=== PATIENT | female | born 1980 | race Hispanic/Latino ===

== ENCOUNTER 2019-02-17 17:48 | Emergency (ER) | payer OTHER ==
[2019-02-17 19:25] LABS: BASOPHILS % (AUTO) 2.3 % (0.0-5.0); EOSINOPHILS % (AUTO) 2.4 % (0.0-8.0); HEMATOCRIT 40.6 % (36-48); LYMPHOCYTES % (AUTO) 31.7 % (21.0-51.0); MEAN CORPUSCULAR HEMOGLOBIN 31.3 pg (27.0-33.0); MEAN CORPUSCULAR HGB CONC 35.7 g/dL (32.0-36.0); MEAN CORPUSCULAR VOLUME 87.8 fL (79-99); MONOCYTES % (AUTO) 8.7 % (3.0-13.0); NEUTROPHILS % (AUTO) 54.9 % (40.0-77.0); PLATELET COUNT (AUTO) 333 K/uL (130-400); RED BLOOD CELL COUNT(AUTO) 4.63 MIL/uL (4.00-5.50); RED CELL DISTRIBUTION WIDTH 13.2 % (11.0-15.5); WHITE BLOOD COUNT (AUTO) 11.3 K/uL (4.8-10.8)
[2019-02-17 19:29] LABS: CREATININE 0.7 mg/dL (0.5-1.5); POTASSIUM 3.7 mmol/L (3.5-5.1)
[2019-02-17 19:33] LABS: ALBUMIN 4.1 g/dL (3.5-5.0); BILIRUBIN,TOTAL 0.5 mg/dL (0.2-1.0); TOTAL PROTEIN, SERUM 9.2 g/dL (6.0-8.3)
[2019-02-17] MEDS ORDERED: CLINDAMYCIN HCL 150 MG CAP ONE (19:55)
== END 2019-02-17 21:06 | disposition home or self-care (01) ==
LOC: EDH 17:48
DX: K04.7 Periapical abscess without sinus (principal); L03.211 Cellulitis of face; Z98.890 Other specified postprocedural states
CPT/HCPCS: 36415; 70486; 80053; 81025; 85025; 85651

== ENCOUNTER 2024-08-01 15:46 | Emergency (ER) | payer OTHER ==
[~2024-08-01] VITALS: Ht 157.5 cm; Wt 90.7 kg
[2024-08-01 16:12] LABS: RAPID GROUP A STREP negative (NEGATIVE)
[2024-08-01 16:15] LABS: SARS-CoV-2, RNA, NAAT NEGATIVE SARS CoV-2 (NEGATIVE)
[2024-08-01 16:22] LABS: INFLUENZA TYPE A Negative For Type A (NEGATIVE); INFLUENZA TYPE B Negative For Type B (NEGATIVE)
[2024-08-01] MEDS ORDERED: BENZ-39 PO (16:34)
[2024-08-01] MEDS ORDERED: ALBUHFA IH (16:34)
[2024-08-01 16:53] VITALS: BP 134/81; PULSE 90; RESP 18; TEMP 98.4; O2SAT 100
== END 2024-08-01 16:58 | disposition home or self-care (01) ==
LOC: EDH 15:46
DX: J06.9 Acute upper respiratory infection, unspecified (principal); Z20.822 Contact with and (suspected) exposure to COVID-19; E11.9 Type 2 diabetes mellitus without complications; Z98.890 Other specified postprocedural states
CPT/HCPCS: 87635; 87804; 87880

== ENCOUNTER 2025-06-10 15:40 | Emergency (ER) | payer SELFPAY ==
[~2025-06-10] VITALS: Ht 154.9 cm; Wt 86.2 kg
[~2025-06-10 15:40] MED LIST: ALBUHFA IH; BENZ-39 PO
[2025-06-10 15:43] VITALS: TEMP 98.7
--- NOTE | 2025-06-10 16:00 | ERN ---
ED Note History of Present Illness Stated Complaint: SOB Chief Complaint: Cough Time Seen by MD: 15:43 Dictation: PATIENT IS A 44-YEAR-OLD FEMALE COMING IN TODAY WITH COMPLAINTS OF HAVING A COUGH NONPRODUCTIVE FOR THE LAST 3-4 DAYS. SHE STATES ON SUNDAY SHE TOOK A HOME COVID 19 TEST AND IT WAS POSITIVE. NO FEVER NO CHILLS NO LOSS OF TASTE OR SMELL NO NAUSEA VOMITING. SHE DOES NOT HAVE A PRIMARY CARE DOCTOR HOWEVER SHE WOULD LIKE TO BE RETESTED TO VERIFY THAT SHE HAS COVID. STATES HER TO DAUGHTERS WENT TO THEIR DOCTOR TODAY FOR A PHYSICAL AND THEY WERE NEGATIVE. Allergies: Coded Allergies: No Known Allergies (Unverified Allergy, Unknown, 08/01/24) Home Meds Active Scripts Benzonatate (Tessalon Perles) 100 Mg Cap, 200 MG PO TID for cough, #40 CAP 0 Refills TWO CAPSULES BY MOUTH EVERY 8 HOURS P.R.N. COUGH Prov:MADHU STARK MAIL SUPERINTENDENT 08/01/24 Albuterol Sulfate (Ventolin Hfa/Proventil Hfa/Proair Hfa) 90 Mcg Puff, 2 PUFF IH Q4H for WHEEZING, #1 INHALER 0 Refills Prov:MADHU STARK MAIL SUPERINTENDENT 08/01/24 Past Medical History Past Medical History: No Pertinent History Surgical History: History: Not Applicable RN Note Reviewed/Agreed w/PFSH: Yes Review of System Dictation CONSTITUTIONAL: NEGATIVE EXCEPT FOR HPI HEAD/FACE: NEGATIVE EXCEPT FOR HPI EENT: NEGATIVE EXCEPT FOR HPI RESPIRATORY: NEGATIVE EXCEPT FOR HPI COUGH NONPRODUCTIVE GASTROINTESTINAL/ABDOMINAL: NEGATIVE EXCEPT FOR HPI GENITOURINARY: NEGATIVE EXCEPT FOR HPI MUSCULOSKELETAL: NEGATIVE EXCEPT FOR HPI INTEGUMENTARY: NEGATIVE EXCEPT FOR HPI NEUROLOGICAL/PSYCH: NEGATIVE EXCEPT FOR HPI HEMATOLOGIC/LYMPHATIC: NEGATIVE EXCEPT FOR HPI ALL SYSTEMS NEGATIVE, EXCEPT NOTED ABOVE. 13 POINT REVIEW OF SYSTEMS ASSESSED AND ALL NEGATIVE EXCEPT FOR ABOVE. Initial Vital Sign VS Vital Signs Date Time Temp Pulse Resp B/P (MAP) Pulse Ox O2 Delivery O2 Flow Rate FiO2 06/10/25 15:43 98.8 90 18 114/84 99 Room Air 0 Physical Exam Dictation VITAL SIGNS REVIEWED GENERAL APPEARANCE: ALERT, ORIENTED X 3, NO ACUTE DISTRESS, WELL DEVELOPED, NO URISHED. NO ACUTE DISTRESS HEAD AND FACE: NON-TRAUMATIC. EYES: PERRL, PINK CONJUNCTIVAS, EYELID NO TRAUMA, ANTERIOR CHAMBER WITH ARCUS SENILIS. EARS: PINNAS INTACT AND NO SIGNS OF TRAUMA OR ERYTHEMA EAR CANALS CLEAR AND NO DISCHARGE TM NO ERYTHEMA NOSE: NO DISCHARGE, NO BLEEDING. OROPHARYNX: MOUTH NORMAL, TONGUE PINK, PHARYNX CLEAR,NO ERYTHEMA, TONSILS NO EXUDATES, NO ABSCESSES NOTED, MUCOUS MEMBRANE MOIST NECK: SUPPLE, NON-TENDER, NO THYROMEGALY, NO MASSES, NO JVD, NO BRUITS BREAST:DEFERRED CHEST:NO TENDERNESS, NO CREPITUS, NO PARADOXICAL MOVEMENT, NO RETRACTIONS LUNGS:CLEAR, WELL-VENTILATED, SYMMETRIC, NO RALES, NO WHEEZING, NO RHONCHI, NO STRIDOR, GOOD BREATH SOUNDS BILATERALLY HEART: REGULAR RATE, REGULAR RHYTHM, NO MURMUR, NO GALLOPS VASCULAR: NO PERIPHERAL EDEMA, ABDOMEN: SOFT, POSITIVE BOWEL SOUNDS, NONDISTENDED, NO GUARDING, NONTENDER, NO REBOUND, NO MASSES NO HEPATOMEGALY, NO SPLENOMEGALY, NO HAWK'S SIGN, NO HERNIAS. RECTAL: DEFERRED GENITAL: DEFERRED NEUROLOGICAL: NORMAL SPEECH, MOTOR FUNCTION INTACT, SENSORY FUNCTION INTACT MUSCULOSKELETAL: NECK NONTENDER, FULL RANGE OF MOTION, BACK NONTENDER, FULL RANGE OF MOTION, EXTREMITIES: NONTENDER, FULL RANGE OF MOTION SKIN: COLOR PINK, DRY, NO TURGOR, NO RASH, NO LACERATIONS, NO ABRASIONS, NO CONTUSIONS. LYMPHATIC: DEFERRED Results (Laboratory/Radiology) Laboratory/Radiology Laboratory Tests Test 06/10/25 16:04 SARS-CoV-2 Antigen (Rapid) POSITIVE FOR SARS AG Labs Reviewed?: Yes ED Course ED Course Orders Procedure Category Date Status Time Covid19 (Sars Antigen LAB 06/10/25 Complete Rapid) 15:57 Vital Signs Date Time Temp Pulse Resp B/P (MAP) Pulse Ox O2 Delivery O2 Flow Rate FiO2 06/10/25 15:43 98.8 90 18 114/84 99 Room Air 0 1700/NO ACUTE DISTRESS AT THIS TIME. SATURATING 99% ON ROOM AIR. PATIENT IS POSITIVE FOR COVID-19 INFECTION DISCHARGED HOME WITH ALBUTEROL AND MEDROL DOSEPAK Medical Decision Making MDM MEDICAL DECISION-MAKING BASED ON SWABS FOR COVID-19 ONLY SWAB IS POSITIVE DISCHARGED HOME WITH MEDROL DOSEPAK AND ALBUTEROL TOLD INCREASE YOUR FLUIDS AND SEE HER DOCTOR FOR FOLLOW UP DX & DISP Disposition: Discharge Departure Impression: Primary Impression: COVID-19 virus infection Condition: Stable Scripts Methylprednisolone (Medrol) 4 Mg Tab.ds.pk 1 TAB PO AD for 6 Days, #21 TAB 0 Refills 6 on day 1 then reduce by one tablet daily until gone Prov: MADHU STARK NP 06/10/25 Albuterol Sulfate (Ventolin Hfa/Proventil Hfa/Proair Hfa) 90 Mcg Puff 2 PUFF IH Q4H for WHEEZING, #1 INHALER 0 Refills Prov: MADHU STARK NP 06/10/25 Additional Instructions: FOLLOW-UP WITH PRIMARY CARE PROVIDER IN 1 TO 2 DAYS. TAKE MEDICATIONS DIRECTED HERE IN THE EMERGENCY ROOM. OKAY TO CONTINUE HOME MEDICATIONS UNLESS OTHERWISE DISCUSSED DURING YOUR VISIT IN THE EMERGENCY ROOM TODAY. RETURN TO YOUR NEAREST EMERGENCY ROOM IF SYMPTOMS WORSEN OR IF THERE IS NO IMPROVEMENT. CALL 911 IF YOU NEED IMMEDIATE ASSISTANCE. TAKE TYLENOL OR MOTRIN VAME-UVW-[id number] NEEDED AND IF NO CONTRAINDICATIONS ARE PRESENT. INCREASE ORAL HYDRATION. A WOUND CULTURE OR URINE CULTURE WAS ORDERED HERE IN THE EMERGENCY ROOM DEPARTMENT PLEASE FOLLOW-UP WITH PRIMARY CARE PROVIDER AND ADVISE THEM TO GET REPEAT PORTS FROM OUR FACILITY. IF YOU HAD ANY RAUL WRAP/SPLINTS THAT WERE APPLIED HERE, PLEASE DO NOT REMOVE THEM UNTIL YOU SEE YOUR PRIMARY CARE OR SPECIALTY. TAKE MEDROL DOSEPAK DIRECTED UNTIL GONE. TAKE ALBUTEROL INHALER EVERY 4-6 HOURS NEEDED FOR SHORTNESS A BREATH. INCREASE YOUR FLUID INTAKE. FOLLOW UP WITH ONE OF THE DOCTORS ON THE LIST PROVIDED YOU IN THE NEXT 1-2 DAYS NEEDED FOR MANAGEMENT Referrals: SELF,REFERRAL (PCP) Time of Disposition: 17:00 I have reviewed the case, and I agree with, Diagnosis and Plan MADHU STARK NP Jun 10, 2025 16:00
--- NOTE | 2025-06-10 16:44 | NUR ---
positive COVID results reported to Stu Singletary NP
[2025-06-10] MEDS ORDERED: METH4TAB3 PO (17:01)
[2025-06-10 17:17] VITALS: BP 121/70; PULSE 94; RESP 17; O2SAT 96
== END 2025-06-10 17:44 | disposition home or self-care (01) ==
LOC: EDH 15:40
DX: U07.1 COVID-19 (principal); Z98.890 Other specified postprocedural states
CPT/HCPCS: 87426; 99283